=== PATIENT | male | born 1950 | race Caucasian/White ===

== ENCOUNTER 2021-12-09 07:54 | Outpatient (REF) | payer MEDICARE, SELFPAY ==
[2021-12-09 10:14] LABS: Erythrocyte Sedimentation Rate 4 MM/HR (0-15)
[2021-12-09 10:17] LABS: C Reactive Protein 0.04 mg/dL (< or = 0.50)
== END 2021-12-09 07:55 | disposition home or self-care (01) ==
LOC: HO.LAB 07:54
PROVIDERS: PCP Internal Medicine; Visit Provider Internal Medicine Rheumatology
DX: M35.3 Polymyalgia rheumatica (principal)
CPT/HCPCS: 36415; 85652; 86140; 99212

== ENCOUNTER 2022-03-07 08:18 | Outpatient (REF) | payer MEDICARE, SELFPAY ==
[2022-03-07 09:18] LABS: C Reactive Protein 0.06 mg/dL (< or = 0.50)
[2022-03-07 09:46] LABS: Erythrocyte Sedimentation Rate 4 MM/HR (0-15)
== END 2022-03-07 08:19 | disposition home or self-care (01) ==
LOC: HO.LAB 08:18
PROVIDERS: PCP Internal Medicine; Visit Provider Internal Medicine Rheumatology
DX: M35.3 Polymyalgia rheumatica (principal); M47.816 Spondylosis without myelopathy or radiculopathy, lumbar region; M19.041 Primary osteoarthritis, right hand
CPT/HCPCS: 36415; 85652; 86140; 99212

== ENCOUNTER 2022-04-07 09:36 | Outpatient (REF) | payer MEDICARE, SELFPAY ==
[2022-04-07 10:24] LABS: C Reactive Protein 0.05 mg/dL (< or = 0.50)
[2022-04-07 10:39] LABS: Erythrocyte Sedimentation Rate 4 MM/HR (0-15)
== END 2022-04-07 09:37 | disposition home or self-care (01) ==
LOC: HO.LAB 09:36
PROVIDERS: PCP Internal Medicine; Visit Provider Internal Medicine Rheumatology
DX: M35.3 Polymyalgia rheumatica (principal)
CPT/HCPCS: 36415; 85652; 86140

== ENCOUNTER → 2022-07-06 07:49 | Outpatient (BNVA) | payer MEDICARE, SELFPAY | PROVIDERS: PCP Internal Medicine; Visit Provider Internal Medicine Rheumatology | DX: M35.3 Polymyalgia rheumatica (principal) | CPT/HCPCS: 99212 ==

== ENCOUNTER 2022-11-15 10:45 | Outpatient (REF) | payer MEDICARE, SELFPAY ==
[2022-11-15 13:06] LABS: Folate 16.3 ng/mL (> or = 4.0); Vitamin B12 600 pg/mL (200-900)
== END 2022-11-15 10:46 | disposition home or self-care (01) ==
LOC: HO.LAB 10:45
PROVIDERS: PCP Internal Medicine; Visit Provider Psychiatry & Neurology Neurology
DX: G31.84 Mild cognitive impairment of uncertain or unknown etiology (principal)
CPT/HCPCS: 36415; 82607; 82746; 84436; 84443

== ENCOUNTER 2022-11-30 07:38 | Outpatient (REF) | payer MEDICARE, SELFPAY ==
--- NOTE | ~2022-11-30 | CT_ITS ---
EXAMINATION: CT head/brain wo IV con CLINICAL INFORMATION: Reason for Exam MILD COGNITIVE IMPAIRMENT COMPARISON: None. TECHNIQUE: Contiguous axial imaging was performed from the skull base to vertex without intravenous contrast. Sagittal and coronal reformatted images were obtained. This CT examination was performed using dose optimization techniques as appropriate, variously including the following: * Automated exposure control * Adjustment of mA and/or kV according to patient size (this includes techniques or standardized protocols for targeted exams where dose is matched to indication/reason for exam; i.e. extremities or head) Use of iterative reconstruction technique DLP: 784 mGy-cm FINDINGS: No acute osseous or soft tissue abnormality. The mastoid air cells and visualized portions of the paranasal sinuses are well aerated. There is no evidence of acute intracranial hemorrhage or territorial infarction. No abnormal mass effect or midline shift is seen. Park to white matter differentiation is well preserved. No extra-axial fluid collections are identified. No hydrocephalus. No significant volume loss. There is no abnormal attenuation within the brain parenchyma. CT/CT head/brain wo IV con IMPRESSION: No acute intracranial abnormality
== END 2022-11-30 07:39 | disposition home or self-care (01) ==
LOC: HO.CT 07:38
PROVIDERS: PCP Internal Medicine; Visit Provider Psychiatry & Neurology Neurology
DX: G31.84 Mild cognitive impairment of uncertain or unknown etiology (principal)
CPT/HCPCS: 70450

== ENCOUNTER 2024-01-23 09:53 | Outpatient (AMB) | payer MEDICARE, SELFPAY ==
--- NOTE | 2024-01-23 10:06 | A.OFFVIS_ITS ---
Vital Signs 01/23/24 10:15 Height 6 ft 2 in Weight 187 lb 6.287 oz BMI 24.1 BP 160/82 H Blood Pressure Location Rt brachial Position Sitting Pulse 78 Pulse Source Pulse Oximeter Pulse Oximetry (%) 97 Oxygen Delivery Method Room Air Intake Visit Reasons: PMR/CM Intake Note: Patient last seen by Dr Storey June 2022. Presents today with complaints of PMR symptoms. States he is having issues with mobility and flexibility, especially in the morning. Stiffness/achiness in back, gets worse throughout the day. Taking tylenol arthritis tid. Positive Printer Operator Required: No Accompanied by: Self / Same As Patient Allergies atorvastatin Allergy (Intermediate, Verified 01/23/24 10:18) Muscle Pain house dust Allergy (Intermediate, Verified 01/23/24 10:18) Sneezing Seasonal Allergies Allergy (Intermediate, Verified 01/23/24 10:18) Sneezing Medication List - Last Reconciled 01/23/24 by Lorraine Mei MD acetaminophen ER (Tylenol Arthritis Pain) 650 mg PO Q8H levothyroxine 75 mcg PO DAILY loratadine (Claritin) 10 mg PO DAILY rosuvastatin 10 mg PO DAILY HPI Comments Details: 73-year-old male with history of PMR returns for follow-up. Patient was last seen by Dr. Storey 06/2022 and at that time the prednisone had been tapered off as his PMR was in remission. Patient states that over the last 6 months he has been having progressive stiffness of his whole body, worse in the morning and improves after 3 hours improved with stretching. He has difficulty of getting out of his bed. He has been taking Tylenol 650 mg t.i.d.. He denies any joint swelling. Denies any headaches, blurry vision as any jaw or tongue claudication. Denies any weight loss. Believes that symptoms are similar to his symptoms when he was initially diagnosed with PMR in 2020. Most recent history by Dr. Storey 06/2022: The patient returns for evaluation of his PMR. At his last visit he was on 1 mg b.i.d. prednisone. He said he felt better and we had tried to taper before so he took it upon himself to taper further down to 1 mg prednisone daily and stopped it about a month ago. No PMR symptoms have returned. He says he has been losing weight and was worried that the prednisone could be inducing that. He notes some stiffness in his hands and intermittent low back pain. Back pain improves with stretching. He also takes some [id number] ibuprofen, 2-4 tablets spread through the day and that seems to be helpful. He has no headache, jaw claudication or visual disturbance. He had a abdominal ultrasound back in January that showed gallbladder polyps. A repeat ultrasound is planned for next month. He does have a follow-up with his PCP planned for August. [facility] TO [facility] Medical History History of colonic polyps Diverticulosis of colon (without mention of hemorrhage) Hypothyroidism Hypertension History of prostate cancer Combined hyperlipidemia Polymyalgia rheumatica syndrome Social History Household Members: Significant Other Housing: House Are you a primary acute care nurse practitioner to a significant other at home: No Do you presently have visiting nurse or other home services: No 75 years or older and lives alone: No Alcohol intake: current Patient Tobacco Use Status: Former Tobacco user Years Smoked: Quit in e-Cigarette/Vaping Use: Never Used service: No Current occupational status: retired Review of Systems [facility] [place] Reports back pain, Denies joint swelling and Reports stiffness Physical Exam Vital Signs: Last Vital Signs Pulse 78 01/23/24 10:15 BP 160/82 H 01/23/24 10:15 Pulse Ox 97 01/23/24 10:15 Oxygen Delivery Method Room Air 01/23/24 10:15 BMI result Body Mass Index 24.1 Const General: cooperative, healthy appearing and comfortable Nutritional Appearance: average body habitus Orientation/consciousness: patient oriented x3 Limitations: no limitations HEENT Other: Bilateral palpable superficial temporal artery No temporal area tenderness bilaterally Head: Yes normocephalic and Yes atraumatic Mouth: moist mucous membranes Resp Effort & Inspection: normal respiratory effort and able to speak in complete sentences Auscultation: clear to auscultation bilaterally Cardio Rate: regular rate Rhythm: regular rhythm Skin General skin exam: no rashes or lesions noted Neuro General: patient oriented x3 Extrem Other: Significant osteoarthritic changes of both hands with no active synovitis, right PIP tenderness with full flexion, inability to fully flex right index No active synovitis both wrists Normal range of motion of elbows and shoulders without pain Negative rotator cuff provocative maneuvers bilaterally Negative Speed's test bilaterally No hip pain with manipulation Assessment & Plan Assessment & Plan (1) Polymyalgia rheumatica syndrome: Comment: onset 09/2020; prednisone started 11/2020- tapered off 05/2022 Code(s): M35.3 - Polymyalgia rheumatica Category: Medical Plan: This is a 73-year-old man with history of PMR who presents for follow-up. Was last seen by Dr. Storey 06/2022 and PMR was in remission, prednisone had been tapered off. Today he presents with recurrent symptoms of generalized stiffness, worse in the morning, improved after 3 hours. Symptoms ongoing for the last 6 months. I do not see any active peripheral synovitis today. Clinical picture suspicious for recurrent PMR. Will order comprehensive serology to re-evaluate his condition. If inflammatory markers are elevated, will restart prednisone Follow-up in 6 weeks Plan I spent 30 minutes reviewing patient's chart, evaluating patient, ordering diagnostic workup, counseling patient and documenting in the chart Orders: Orders T Spot TB Today M06.9 - Rheumatoid arthritis, unspecified Rheumatoid Factor Today M06.9 - Rheumatoid arthritis, unspecified Complete Blood Count Auto Diff Today M06.9 - Rheumatoid arthritis, unspecified Comprehensive Met. Panel Today M06.9 - Rheumatoid arthritis, unspecified C Reactive Protein Today M06.9 - Rheumatoid arthritis, unspecified Erythrocyte Sedimentation Rate Today M06.9 - Rheumatoid arthritis, unspecified Immunofixation Pnl, Serum Today M06.9 - Rheumatoid arthritis, unspecified Hepatitis A,B,C Profile Today Z11.59 - Encounter for screening for other viral diseases Cyclic Citrullinated Peptide Today M06.9 - Rheumatoid arthritis, unspecified YARA Reflex Titer and Pattern Today M35.3 - Polymyalgia rheumatica Coding Level of Care Code Est Pt Level 4 (20228) Diagnoses Polymyalgia rheumatica syndrome M35.3
[2024-01-23 10:15] VITALS: BP 160/82; PULSE 78; O2SAT 97; BMI 24.1
== END 2024-01-23 10:44 | disposition home or self-care (01) ==
LOC: HO.RHE 09:53
PROVIDERS: PCP Internal Medicine; Visit Provider Student in an Organized Health Care Education/Training Program
DX: M35.3 Polymyalgia rheumatica (principal)
CPT/HCPCS: 99214

== ENCOUNTER 2024-01-23 09:53 | Outpatient (REF) | payer MEDICARE, SELFPAY ==
[2024-01-23 11:19] LABS: MANUAL DIFF FLAG NO
[2024-01-23 12:09] LABS: Basophils Absolute Auto 0.1 X10*3/uL (0.0-0.2); Basophils Percent Auto 0.9 % (0-2); Eosinophils Absolute Auto 0.2 X10*3/uL (0.0-0.4); Hematocrit 42.7 % (42.0-52.0); Hemoglobin 15.5 g/dl (14.0-18.0); Imm Gran Abs Auto 0.02 X10*3/uL (0.00-0.03); Imm Gran Pct Auto 0.4 % (0.0-0.4); Lymphocytes Absolute Auto 2.1 X10*3/uL (1.2-4.9); Lymphocytes Percent Auto 36.1 % (20-40); Mean Corpuscular HGB Conc 36.3 g/dl (31.0-36.0); Mean Corpuscular Hemoglobin 32.8 pg (27.0-33.0); Mean Corpuscular Volume 90.5 fL (80.0-98.0); Mean Platelet Volume 9.4 fL (9.4-12.4); Monocytes Absolute Auto 0.6 X10*3/uL (0.1-1.2); Monocytes Percent Auto 10.4 % (2-11); Neutrophils Absolute Auto 2.8 x10*3/uL (2.0-8.3); Neutrophils Percent Auto 49.2 % (45-73); Platelet Count 159 X10*3/uL (160-400); Red Blood Count 4.72 X10*6/uL (4.60-5.80); White Blood Count 5.7 X10*3/uL (4.8-10.8)
[2024-01-23 12:45] LABS: Alanine Aminotransferase 35 U/L (0-40); Albumin Level 4.1 g/dL (3.5-5.0); Alkaline Phosphatase 74 U/L (39-117); Anion Gap 11 (12-20); Aspartate Amino Transferase 26 U/L (5-37); Bilirubin Total 0.7 mg/dL (0.0-1.0); Blood Urea Nitrogen 12 mg/dL (9-16); C Reactive Protein < 0.10 mg/dL (< or = 0.50); Calcium 9.3 mg/dL (8.4-10.2); Carbon Dioxide 27 mmol/L (22-29); Chloride 106 mmol/L (96-108); Estimated Glomerular Filt Rate > 60; Glucose Random 104 mg/dL (60-115); Potassium 3.9 mmol/L (3.3-5.1); Rheumatoid Factor < 13.0 IU/mL (<15.0); Sodium 140 mmol/L (135-145); Total Protein 6.6 g/dL (6.5-8.0)
[2024-01-23 12:53] LABS: Erythrocyte Sedimentation Rate 3 MM/HR (0-15)
[2024-01-24 08:17] LABS: HBS Num1 0.67 mIU/mL (0-7.99); HBc Num1 0.06 S/CO (0.00-0.79); HBsAGNum1 0.34 S/CO (0.00-0.99); Hepatitis A Antibody IgM 0.11 Index (0-0.79); Hepatitis B Core Antibody Nonreactive (Nonreactive); Hepatitis B Surface Antigen Negative (Negative); ~HepC Num1 0.07 S/CO (0.00-0.79); ~Hepatitis A Antibody IgM Nonreactive (Nonreactive); ~Hepatitis B Surface Antibody NONREACTIVE (Nonreactive); ~Hepatitis C Antibody Nonreactive (Nonreactive)
[2024-01-24 15:48] LABS: Cyclic Citrullinated Peptide <16 UNITS
[2024-01-25 14:53] LABS: IgA 150 mg/dL (70-320); IgG 811 mg/dL (600-1540); IgM 52 mg/dL (50-300)
[2024-01-26 07:43] LABS: TS Negative Control Passed; TS Panel A 0; TS Panel B 0; TS Positive Control Passed; TSpotTB Negative (Negative)
[2024-01-26 20:39] LABS: Anti Nuclear Antibody Screen NEGATIVE (NEGATIVE)
== END 2024-01-23 09:54 | disposition home or self-care (01) ==
LOC: HO.LAB 09:53
PROVIDERS: PCP Internal Medicine; Visit Provider Student in an Organized Health Care Education/Training Program
DX: M35.3 Polymyalgia rheumatica (principal); M06.9 Rheumatoid arthritis, unspecified; Z11.59 Encounter for screening for other viral diseases
CPT/HCPCS: 36415; 80053; 82784; 85025; 85652; 86038; 86140; 86200; 86334; 86431; 86481; 86704; 86706; 86709; 86803; 87340; 99212

== ENCOUNTER 2024-03-28 07:53 | Outpatient (AMB) | payer MEDICARE, SELFPAY ==
--- NOTE | 2024-03-28 07:58 | MHC.OFFVIS ---
Vital Signs 03/28/24 08:02 Height 6 ft 2 in Weight 189 lb 6.033 oz BMI 24.3 BP 152/84 H Blood Pressure Location Lt brachial Position Sitting Pulse 60 Pulse Source Pulse Oximeter Pulse Oximetry (%) 99 Oxygen Delivery Method Room Air Intake Visit Reasons: PMR/LM Intake Note: Patient presents for PMR. Should we continue with Prednisone prescription? Allergies atorvastatin Allergy (Intermediate, Verified 03/28/24 08:01) Muscle Pain house dust Allergy (Intermediate, Verified 03/28/24 08:01) Sneezing Seasonal Allergies Allergy (Intermediate, Verified 03/28/24 08:01) Sneezing Medication List - Last Reconciled 03/28/24 by Lorraine Mei MD acetaminophen ER (Tylenol Arthritis Pain) 650 mg PO Q8H levothyroxine 75 mcg PO DAILY loratadine (Claritin) 10 mg PO DAILY prednisone Take 1 tab daily for 1 month then 1 tab every other day for 1 month then stop rosuvastatin 10 mg PO DAILY HPI Comments Details: 73-year-old male with history of PMR returns for follow-up. Patient took prednisone 5 mg daily regularly for the last month until he ran out 3 days ago. He stated that prednisone provided about 50% improvement in his overall stiffness. Most recent history by Dr. Storey 06/2022: The patient returns for evaluation of his PMR. At his last visit he was on 1 mg b.i.d. prednisone. He said he felt better and we had tried to taper before so he took it upon himself to taper further down to 1 mg prednisone daily and stopped it about a month ago. No PMR symptoms have returned. He says he has been losing weight and was worried that the prednisone could be inducing that. He notes some stiffness in his hands and intermittent low back pain. Back pain improves with stretching. He also takes some xbrq-tmw-usbsikt ibuprofen, 2-4 tablets spread through the day and that seems to be helpful. He has no headache, jaw claudication or visual disturbance. He had a abdominal ultrasound back in January that showed gallbladder polyps. A repeat ultrasound is planned for next month. He does have a follow-up with his PCP planned for August. [facility] Medical History History of colonic polyps Diverticulosis of colon (without mention of hemorrhage) Hypothyroidism Hypertension History of prostate cancer Combined hyperlipidemia Polymyalgia rheumatica syndrome Social History Household Members: Significant Other Housing: House Are you a primary progressive care manager to a significant other at home: No Do you presently have visiting nurse or other home services: No 75 years or older and lives alone: No Alcohol intake: current Patient Tobacco Use Status: Former Tobacco user Years Smoked: Quit in e-Cigarette/Vaping Use: Never Used service: No Current occupational status: retired [employer] of [employer] Reports stiffness Physical Exam Vital Signs: Last Vital Signs Pulse 60 03/28/24 08:02 BP 152/84 H 03/28/24 08:02 Pulse Ox 99 03/28/24 08:02 Oxygen Delivery Method Room Air 03/28/24 08:02 BMI result Body Mass Index 24.3 Const General: cooperative, healthy appearing and comfortable Nutritional Appearance: average body habitus Orientation/consciousness: patient oriented x3 Limitations: no limitations HEENT Other: Bilateral palpable superficial temporal artery No temporal area tenderness bilaterally Head: Yes normocephalic and Yes atraumatic Mouth: moist mucous membranes Resp Effort & Inspection: normal respiratory effort and able to speak in complete sentences Auscultation: clear to auscultation bilaterally Cardio Rate: regular rate Rhythm: regular rhythm Skin General skin exam: no rashes or lesions noted Neuro General: patient oriented x3 Extrem Other: Significant osteoarthritic changes of both hands with no active synovitis, right PIP tenderness with full flexion, inability to fully flex right index No active synovitis both wrists Normal range of motion of elbows and shoulders without pain Negative rotator cuff provocative maneuvers bilaterally Negative Speed's test bilaterally No hip pain with manipulation Unable to fully flex both knees No knee pain with full flexion-extension Results Reviewed Results Reviewed: Laboratory Tests 04/07/22 04/07/22 09:51 09:51 teodora: Z : 1950 ? ? ? Final ? \ Assessment & Plan Assessment & Plan (1) Polymyalgia rheumatica syndrome: Comment: onset 09/2020; prednisone started 11/2020- tapered off 05/2022 5mg restarted 01/2024 Code(s): M35.3 - Polymyalgia rheumatica Category: Medical Plan: This is a 73-year-old man with history of PMR returns for follow-up. He has been taking prednisone 5 mg regularly for the last 2 months with about 50% improvement in his overall stiffness. Likely the majority of his symptoms are related to degenerative arthritis Reduce prednisone to 2.5 mg daily for 1 month, 2.5 mg every other day for 1 month then stop follow-up in 3 months, no need for blood work before the visit Plan I spent 22minutes reviewing patient's chart, evaluating patient, counseling patient and documenting in the chart Medications: New prednisone Take 1 tab daily for 1 month then 1 tab every other day for 1 month then stop 45 tabs 0RF Discontinued prednisone Discontinued Reason: Patient Completed Course 5 mg PO DAILY 30 tabs 0RF Coding Level of Care Code Est Pt Level 3 (15770) Diagnoses Polymyalgia rheumatica syndrome M35.3
[2024-03-28 08:02] VITALS: BP 152/84; PULSE 60; O2SAT 99; BMI 24.3
== END 2024-03-28 08:32 | disposition home or self-care (01) ==
PROVIDERS: PCP Internal Medicine; Visit Provider Student in an Organized Health Care Education/Training Program
DX: M35.3 Polymyalgia rheumatica (principal)
CPT/HCPCS: 99213

== ENCOUNTER → 2024-03-28 07:53 | Outpatient (BNVA) | payer MEDICARE, SELFPAY | PROVIDERS: PCP Internal Medicine; Visit Provider Student in an Organized Health Care Education/Training Program | DX: M35.3 Polymyalgia rheumatica (principal) | CPT/HCPCS: 99212 ==

== ENCOUNTER 2024-07-08 07:38 | Outpatient (AMB) | payer MEDICARE, SELFPAY ==
--- NOTE | 2024-07-08 07:39 | MHC.OFFVIS ---
Vital Signs 07/08/24 07:42 Height 6 ft 2 in Weight 188 lb 0.869 oz BMI 24.1 BP 112/64 Blood Pressure Location Rt brachial Pulse 61 Pulse Source Pulse Oximeter Pulse Oximetry (%) 97 Oxygen Delivery Method Room Air Intake Visit Reasons: PMR/LM Intake Note: Patient presents for PMR. Allergies atorvastatin Allergy (Intermediate, Verified 07/08/24 07:42) Muscle Pain house dust Allergy (Intermediate, Verified 07/08/24 07:42) Sneezing Seasonal Allergies Allergy (Intermediate, Verified 07/08/24 07:42) Sneezing Medication List - Last Reconciled 07/08/24 by Lorraine Mei MD acetaminophen ER (Tylenol Arthritis Pain) 650 mg PO Q8H levothyroxine 75 mcg PO DAILY loratadine (Claritin) 10 mg PO DAILY prednisone Take 1 tab daily for 1 month then 1 tab every other day for 1 month then stop rosuvastatin 10 mg PO DAILY HPI Comments Details: 73-year-old male with history of PMR returns for follow-up. He has been off the prednisone for about a month now. States that he is feeling reasonably well. He states that he has stiffness when he wakes up. He does some exercises at home such as sit-ups, leg stretches, quadriceps flexions as well as arms stretches with improvement. States that he gets some intermittent lower back pain. Denies any joint swelling. [facility] Medical History History of colonic polyps Diverticulosis of colon (without mention of hemorrhage) Hypothyroidism Hypertension History of prostate cancer Combined hyperlipidemia Polymyalgia rheumatica syndrome Social History Household Members: Significant Other Housing: House Are you a primary day care home provider to a significant other at home: No Do you presently have visiting nurse or other home services: No 75 years or older and lives alone: No Alcohol intake: current Patient Tobacco Use Status: Former Tobacco user Years Smoked: Quit in e-Cigarette/Vaping Use: Never Used service: No Current occupational status: retired Review of Systems [facility] [place] Reports back pain and Reports stiffness Physical Exam Vital Signs: Last Vital Signs Pulse 61 07/08/24 07:42 BP 112/64 07/08/24 07:42 Pulse Ox 97 07/08/24 07:42 Oxygen Delivery Method Room Air 07/08/24 07:42 BMI result Body Mass Index 24.1 Const General: cooperative, healthy appearing and comfortable Nutritional Appearance: average body habitus Orientation/consciousness: patient oriented x3 Limitations: no limitations HEENT Other: Bilateral palpable superficial temporal artery No temporal area tenderness bilaterally Head: Yes normocephalic and Yes atraumatic Mouth: moist mucous membranes Resp Effort & Inspection: normal respiratory effort and able to speak in complete sentences Auscultation: clear to auscultation bilaterally Cardio Rate: regular rate Rhythm: regular rhythm Skin General skin exam: no rashes or lesions noted Neuro General: patient oriented x3 Extrem Other: Significant osteoarthritic changes of both hands with no active synovitis, right PIP tenderness with full flexion, inability to fully flex right index No active synovitis both wrists Normal range of motion of elbows and shoulders without pain Negative rotator cuff provocative maneuvers bilaterally Negative Speed's test bilaterally No hip pain with manipulation Unable to fully flex both knees No knee pain with full flexion-extension Assessment & Plan Assessment & Plan (1) Polymyalgia rheumatica syndrome: Comment: onset 09/2020; prednisone started 11/2020- tapered off 05/2022 5mg restarted 01/2024 tapered off 05/2024 Code(s): M35.3 - Polymyalgia rheumatica Category: Medical Plan: This is a 73-year-old man with history of PMR returns for follow-up. He is off the prednisone for over one-month now. Doing well overall. No inflammatory symptoms. Symptoms more consistent with degenerative arthritis Continue to monitor patient off prednisone Follow-up in 1 year. Sooner if needed Plan I spent 15 minutes reviewing patient's chart, evaluating patient, counseling patient and documenting in the chart Coding Level of Care Code Est Pt Level 3 (30095) Diagnoses Polymyalgia rheumatica syndrome M35.3
[2024-07-08 07:42] VITALS: BP 112/64; PULSE 61; O2SAT 97; BMI 24.1
== END 2024-07-08 07:59 | disposition home or self-care (01) ==
PROVIDERS: PCP Internal Medicine; Visit Provider Student in an Organized Health Care Education/Training Program
DX: M35.3 Polymyalgia rheumatica (principal)
CPT/HCPCS: 99213

== ENCOUNTER → 2024-07-08 07:38 | Outpatient (BNVA) | payer MEDICARE, SELFPAY | PROVIDERS: PCP Internal Medicine; Visit Provider Student in an Organized Health Care Education/Training Program | DX: M35.3 Polymyalgia rheumatica (principal) | CPT/HCPCS: 99212 ==

== ENCOUNTER 2025-07-25 08:16 | Outpatient (REF) | payer MEDICARE, SELFPAY ==
[2025-07-25 11:43] LABS: Folate 12.7 ng/mL (> or = 4.0); Vitamin B12 712 pg/mL (200-900)
[2025-07-30 06:04] LABS: ABETA 42/40 Ratio 0.160 (> OR = 0.170); Alzeheimer's Interpretation Indeterminant; Alzeimer's Disease Score 0.5291; Tau protein phosphorylated 217 0.39 pg/mL (< OR = 0.15)
== END 2025-07-25 08:17 | disposition home or self-care (01) ==
LOC: HO.LAB 08:16
PROVIDERS: PCP Internal Medicine; Visit Provider Registered Nurse
DX: G31.84 Mild cognitive impairment of uncertain or unknown etiology (principal); G25.0 Essential tremor; G24.3 Spasmodic torticollis; H93.19 Tinnitus, unspecified ear
CPT/HCPCS: 36415; 82233; 82234; 82607; 82746; 84393; 84443; 99212

== ENCOUNTER 2025-07-25 08:16 | Outpatient (AMB) | payer MEDICARE, SELFPAY ==
--- OUTSIDE RECORDS SUMMARY | 2025-07-25 08:24 | XMS_ITS | Encounter Summary ---
Author Organization [facility] Address [address] [place] [address] Care Team Providers Care Tax Processor Name Role Phone Stanislaw Negron MD Primary Care Provider [phone] Encounter Details Date Type Department Care Team (Late Contact Info) Description 07/08/2025 Results Follow-Up Adult Medicine [address] [phone] Stanislaw Negron MD [address] [place] [address] Social History Tobacco Use Types Packs/Day Years Used Date Smoking Tobacco: Former Cigarettes 0 Q uit: 09/11/1967 Smokeless Tobacco: Never Alcohol Use Standard Drinks/Week Comments Yes 0 (1 standard drink = 0.6 oz pur e alcohol) Sex and Gender Information Value Date Recorded Sex Assigned at Not on file Legal Sex Male 2:53 PM EST Gender Identity Not on file Sexual Orientation Not on file documented as of this encounter Plan of Treatment Upcoming Encounters Date Type Department Care Team (Late Contact Info) Description 09/22/2025 8:30 AM EST Office Visit Adult Medicine [address] [phone] Stanislaw Negron MD [address] [place] [address] documented as of this encounter Visit Diagnoses Not on filedocumented in this encounter Additional Health Concerns Assessment Noted Time A fall risk assessment has been complete d for the patient 07/07/2025 11:50 AM EDT documented as of this encounter Care Teams Tax Processor Relationship Specialty Start Date End Date Stanislaw Negron MD [address] [place] [address] PCP - General 12/12/07 documented as of this encounter
--- OUTSIDE RECORDS SUMMARY | 2025-07-25 08:24 | XMS_ITS | Clinical Summary ---
Author Organization [facility] [address] [place] [address] [place] [phone] Phone Care Team Providers Care Hematology Supervisor Name Role Phone Stanislaw Negron MD Primary Care Provider [phone] Allergies Active Allergy Reactions Criticality Noted Date Comments Atorvastatin Pain 07/16/2018 Reaction Type: Side Effect House Dust 11/08/2017 Other 11/08/2017 Medications acetaminophen (TYLENOL 8 HOUR) 650 mg 8 hr tablet Take 1 Tablet by mouth 3 times daily. OTC Active loratadine (CLARITIN) 10 mg tablet Take 1 Tab by mouth daily. Active DAILY MULTI-VITAMIN ORAL Take by mouth. Activ e predniSONE (DELTASONE) 5 mg tablet Take 1 Tablet by mouth daily. 4 Active DIETARY SUPPLEMENT ORAL Apoaequorin 10 MG Cap Route: Take 1 Tablet by mouth daily. - Oral Active levothyroxine (SYNTHROID, LEVOTHROID) 75 mcg tablet TAKE 1 TABLET DAILY 90 tablet 1 5 Active rosuvastatin (CRESTOR) 10 mg tablet Take 1 tablet (10 mg total) by mouth 1 (one) time each day. 90 tablet 1 5 Active rosuvastatin (CRESTOR) 10 mg tablet TAKE 1 TABLET DAILY 90 tablet 1 5 07/07/20 25 Discontin ued(Reord er) Active Problems Problem Noted Date Diagnosed Date Patient has healthcare proxy 07/07/2025 Overview (07/07/2025): Son, Jason, lives in [place] area Partner, Melissa Assessment & Plan (07/07/2025 12:56 PM EDT): Memory deficit 03/07/2024 Assessment & Plan (07/07/2025 12:56 PM EDT): Gall bladder polyp 04/19/2023 Abnormal ultrasound 01/28/2022 Overview (06/06/2024): On ultrasound for evaluation of mild abnormal liver function test, less than 0.3 cm Hypertension 07/12/2021 Overview (06/06/2024): Last Assessment & Plan: The patient's blood pressure is somewhat elevated in the office today. I rechecked and confirmed this reading. He complained of the last time he checked his blood pressure was a couple of months ago at home. Prior to that, his blood pressure was consistently in the 120-130 range systolically. This certainly is the goal for this patient. He has never been on an antihypertensive. For now, we recommend ongoing physical activity. We discussed focused movement such as walking for at least 20 to 30 minutes every day as a means of maintaining general health as well as working to increase vasodilatation and control his blood pressure. The patient understands this and agrees. I also recommended that he does not check his blood pressure periodically at home and notify Dr. Negron if his blood pressure starts trending up to the 140 and 150 range. This likely would indicate the need for initiating an antihypertensive. Would recommend ARB as first-line. Assessment & Plan (07/07/2025 12:56 PM EDT): Orders: Comprehensive metabolic panel; Future Hyperlipidemia 07/12/2021 Overview (06/06/2024): Last Assessment & Plan: Patient does have a history of hyperlipidemia. He is last lipid profile in March demonstrated that the total cholesterol was Hello Mr. 990 mg he asked me to see you 258, triglycerides 136, HDL 56 the LDL is 175. This LDL is too high. Tell him I want to try to get the LDL below 100. Currently in the past he cannot tolerate atorvastatin. He was able to tolerate rosuvastatin but the co-pay was too high. He has been on this dose of pravastatin for some time. Repeat his lipids not reviewed; increase his pravastatin to 20 mg a day. Come back to titrate this is high as we possibly could. Again with a goal of trying to the LDL below 100. I did calculate his 10-year risk of developing atherosclerosis and was 18.7%. I did tell patient if he started having exertional symptoms, I described to him to call. I did tell him if any discomforts in his chest that lasted over 15-20 minutes to call 911. Polymyalgia rheumatica syndrome ([facility] V24) Overview (06/06/2024): Onset 09/2020 Prednisone started 11/2020 Assessment & Plan (07/07/2025 12:56 PM EDT): Hypothyroidism 05/09/2017 Ventral hernia 12/17/2014 Diverticulitis of colon without hemorrhage 05/14 Overview (06/06/2024): Incidental finding at colonoscopy 05/14/2010. Mixed hyperlipidemia 12/09/2009 Overview (06/06/2024): Last Assessment & Plan: The patient's LDL is well-controlled on his current low-dose statin. Increasing his formal exercise in the form of walking will also help his lipid profile. He does not have any symptoms or complaints related to his statin therapy Crestor. Assessment & Plan (07/07/2025 12:56 PM EDT): Orders: Lipid panel with reflex to direct LDL; Future Comprehensive metabolic panel; Future Prostate cancer ([facility] V24, [facility] V28) 09/12 Overview (06/06/2024): 2008 S/p prostaectomy in [place] Assessment & Plan (07/07/2025 12:56 PM EDT): Encounters Date Type Department Care Team Description 07/08/2025 Results Follow-Up Adult Medicine [address] [phone] Stanislaw Negron MD 07/07/2025 12:42 PM EDT - 07/07/2025 11:59 PM EDT Hospital Encounter [address] [phone] Right shoulder pain, unspecified chronicity Discharge Disposition: Home or Self Care 07/07/2025 11:15 AM EDT Office Visit [address] [phone] Stanislaw Negron MD Need for prophylactic vaccination and inoculation against influenza (Primary Dx); Primary hypertension; Mixed hyperlipidemia; Polymyalgia rheumatica syndrome (CMS/HCC V24); Prostate cancer (CMS/HCC V24, CMS/HCC V28); Memory deficit; Right shoulder pain, unspecified chronicity; Patient has healthcare proxy from Last 3 Months Immunizations Immunization Administration Dates Next Due H1N1 Inj Preservative Free 07/13/2022 Influenza Quadravalent, MDCK , 0.5ml, preservative free (Flucelvax) 6mo and older 07/25/2018 Influenza trivalent, 0.5mL ( Fluad) 65yo and older 07/07/2025 Influenza trivalent, 0.5mL ( Fluzone High-dose) 65yo and older 07/20/2020 Influenza trivalent, with preservative (Fluzone; Afluria) 6mo and older 07/20/2016,08/25/2015,07/15/2014,2010,07/20/2010 Pfizer (ages 12 & older) Biv alent, COVID-19 08/08/2023,07/13/2022 Pfizer SARS-CoV-2 COVID-19, mRNA, LNP-S, preservative free 12/22/2020,12/01/2020 Pneumococcal conjugate 13 va lent (Prevnar 13, PCV13) 2mo and older 07/25/2018 Tdap Tetanus diptheria acell ular pertussis (Boostrix; Adacel) 7yo and older 12/12/2007 Zoster Live 03/23/2012 Surgical History Surgery Date Site/Laterality Comments COLONOSCOPY 1999 PROCEDURE: HISTORICAL COLONOSCOPY; COMMENT: negative COLONOSCOPY 2004 PROCEDURE: HISTORICAL COLONOSCOPY; COMMENT: 3 polyps, done in [place] COLONOSCOPY 05/14/2010 PROCEDURE: HISTORICAL COLONOSCOPY; COMMENT: diverticulosis, no polyps COLONOSCOPY 2014 PROCEDURE: HISTORICAL COLONOSCOPY; COMMENT: no polyps COLONOSCOPY 03/23/2020 PROCEDURE: HISTORICAL COLONOSCOPY; COMMENT: No polyps. Consider colonoscopy again in 5 to 10 years. Medical History Medical History Date Comments Prostate cancer ([facility] V24 , CMS/HCC V28) 09/12/2008 DX:Prostate cancer (HCC) Mixed hyperlipidemia 12/09/2009 DX:Mixed hy perlipidemia Thyroid function test abnormal 03/08/2010 D X:Thyroid function test abnormal Diverticulosis of colon (wit hout mention of hemorrhage) 05/14/2010 DX:Diverticulosis of colon ( without mention of hemorrhage) Ventral hernia 12/17/2014 DX:Ventral herni a Personal history of colonic polyps 12/12/2007 DX:Personal history of colonic polyps Gallstones DX:Gallstones Gallbladder polyp DX:Gallbladder polyp Family History Medical History Relation Name Comments Colon polyps Father Hypertension Father Prostate cancer Father Hyperlipidemia Mother Other: MS Mother Heart attack Paternal Grandfather at age 60' Relation Name Status Comments Father Mother Paternal Grandfather Social History Tobacco Use Types Packs/Day Years Used Date Smoking Tobacco: Former Cigarettes 0 Q uit: 09/11/1967 Smokeless Tobacco: Never Tobacco Cessation:Counseling Given: Not Answered Alcohol Use Standard Drinks/Week Comments Yes 0 (1 standard drink = 0.6 oz pur e alcohol) Sex and Gender Information Value Date Recorded Sex Assigned at Not on file Legal Sex Male 2:53 PM EST Gender Identity Not on file Sexual Orientation Not on file Obstetrics History Last Filed Vital Signs Vital Sign Reading Time Taken Comments Blood Pressure 136/78 07/07/2025 11:43 AM EDT Pulse 67 07/07/2025 11:43 AM EDT Temperature 36.2 C (97.2 F) 07/07/2025 11:43 AM EDT Respiratory Rate 12 07/07/2025 11:43 AM EDT Oxygen Saturation 98% 07/07/2025 11:43 AM EDT Inhaled Oxygen Concentration - - Weight 85.7 kg (189 lb) 07/07/2025 11:43 AM EDT Height 188 cm (6' 2 ) 07/07/2025 11:43 AM EDT Body Mass Index 24.27 07/07/2025 11:43 AM EDT Plan of Treatment Upcoming Encounters Date Type Department Care Team (Late st Contact Info) Description 09/22/2025 8:30 AM EST Office Visit [place] Medicine [facility] [place] [address] [place] [phone] Stanislaw Negron MD [address] [place] [address] Health Maintenance Due Date Last Done Comments Zoster Vaccines (1 of 2) 05/18/2012 03/23/2012 DTaP,Tdap,and Td Vaccines (2 - Td or Tdap) 12/11/2017 12/12/2007 Pneumococcal Vaccine: 50+ Years (2 of 2 - PCV20 or PCV21) 07/25/2019 07/25/2018 Social Influencers of Health Screening 08/20/2022 RSV Immunization Adult Patients (1 - 1-dose 75+ series) 2024 Depression Screening 09/11/2024 03/07/2024 Hypertension/CHF/CAD Annual BMP Blood Test 12/26/2024 12/27/2023 Colorectal Cancer Screening: Colonoscopy 03/23/2025 03/23/2020 COVID-19 Vaccine ( season) 2025 08/08/2023, 07/13/2022, 12/22/2020, Additional history exists Falls Risk Assessment 07/07/2026 07/07/2025, 024 Medicare Annual Wellness Visit 07/07/2026 07/07/2025 Cholesterol Screening (Lipid Panel) 12/06/2027 12/05/2022 Abdominal Aortic Aneurysm (AAA) Screen Completed 02/28/2023 Hepatitis C Screening Completed 03/07/2024 Influenza Vaccine Completed 07/07/2025, , 07/13/2022, Additional history exists HIB Vaccines Aged Out No longer eligi ble based on patient's age to complete this topic HPV Vaccines Aged Out No longer eligi ble based on patient's age to complete this topic Hepatitis A Vaccines Aged Out No long er eligible based on patient's age to complete this topic Hepatitis B Vaccines Aged Out No long er eligible based on patient's age to complete this topic IPV Vaccines Aged Out No longer eligi ble based on patient's age to complete this topic MMR Vaccines Aged Out No longer eligi ble based on patient's age to complete this topic Meningococcal ACWY Vaccine Aged Out N o longer eligible based on patient's age to complete this topic Meningococcal B Vaccine Aged Out No l onger eligible based on patient's age to complete this topic RSV Immunization Patients Under 20 months Aged Out No longer eligible based on patient's age to complete this topic Varicella Vaccines Aged Out No longer eligible based on patient's age to complete this topic Procedures Procedure Name Priority Date/Time Associated Diagnosis Comments XR SHOULDER 2+ VIEWS BILAT Routine 07/07/2025 12:56 PM EDT Right shoulder pain, unspecified chronicity DEPRESSION SCREENING Routine 03/07/2024 HEPATITIS C SCREENING Routine 03/07/2024 ANNUAL BMP BLOOD TEST Routine 12/27/2023 FALLS RISK ASSESSMENT Routine 09/27/2023 ABDOMINAL AORTIC ANEURYSM SCRREN Routine 02/28/2023 LIPID PANEL Routine 12/05/2022 COLONOSCOPY Routine 03/23/2020 from Last 3 Months or Most Recently Relevant to Health Maintenance Results * XR Shoulder 2+ Views bilat (07/07/2025 12:56 PM EDT) Anatomical Region Laterality Modality Upper Extremities, Shoulder Bilateral Radi ographic Imaging 07/07/2025 11:0 5 PM EDT Narrative 07/07/2025 11:07 PM EDT Bilateral shoulders, 2 views. History pain. There are osteophytes arising from the undersurface of the right acromion process. There is no fractures, dislocations or destructive lesions. There is downsloping of the acromion process is more prominent on the right. There are mild degenerative changes in the glenohumeral joints bilaterally. There is no abnormal soft tissue calcifications. CONCLUSIONS: No evidence of fractures or dislocations. Degenerative changes. Downsloping of the acromion process more prominent on the right. -------- FINAL REPORT -------- Dictated By: Catalina Blunt Dictated Date: 07/07/2025 23:05 ET Assigned Physician: Catalina Blnut Reviewed and Electronically Signed By: Catalina Blunt Signed Date: 07/07/2025 23:07 ET Workstation ID: [id number] Transcribed By: Self Edit Transcribed Date: 07/07/2025 23:05 ET Procedure Note Catalina Blunt MD - 07/07/2025 Bilateral shoulders, 2 views. History pain. There are osteophytes arising from the undersurface of the right acromionprocess. There is no fractures, dislocations or destructive lesions. Thereis downsloping of the acromion process is more prominent on the right.There are mild degenerative changes in the glenohumeral jointsbilaterally. There is no abnormal soft tissue calcifications. CONCLUSIONS: No evidence of fractures or dislocations. Degenerativechanges. Downsloping of the acromion process more prominent on theright. -------- FINAL REPORT -------- Dictated By: Catalina Blunt Dictated Date: 07/07/2025 23:05 ET Assigned Physician: Catalina Blunt Reviewed and Electronically Signed By: Catalina Blunt Signed Date: 07/07/2025 23:07 ET Workstation ID: [id number] Transcribed By: Self Edit Transcribed Date: 07/07/2025 23:05 ET Stanislaw Negron MD IMG XR PROCEDURES Final Result * Depression Screening (03/07/2024) [facility] Depression Screening Abstracted Historical Provider HEALTH MAINTENANCE Final Result * Hepatitis C Screening (03/07/2024) [facility] Hepatitis C Screening No interpretation , Abstracted Historical Provider HEALTH MAINTENANCE Final Result * Annual BMP Blood Test (12/27/2023) [facility] Annual BMP Blood Test Abstracted Historical Provider HEALTH MAINTENANCE Final Result * Falls Risk Assessment (09/27/2023) Pathologist [facility] Falls Risk Assessment Abstracted [facility] Provider HEALTH MAINTENANCE Final Result * Abdominal Aortic Aneurysm Screen (02/28/2023) [facility] Abdominal Aortic Aneurysm (AAA) Screening Abstracted Anatomical Region Laterality Modality Other [facility] Provider HEALTH MAINTENANCE Final Result * Lipid panel (12/05/2022) [facility] LDL/HDL Ratio 4 0 - 4 Triglycerides 117 0 - 150 mg/dL Cholesterol 166 0 - 200 mg/dL HDL 46 >=40 mg/dL LDL Cholesterol 97 0 - 100 mg/dL Blood Venous blood specimen / Unknown Result [facility] Provider LAB BLOOD ORDERABLES Phyllis l Result * Colonoscopy (03/23/2020) [facility]ologist [facility] Colonoscopy No interpretation , Abstracted Anatomical Region Laterality Modality Other [facility] Provider HEALTH MAINTENANCE Final Result from Last 3 Months or Most Recently Relevant to Health Maintenance Insurance [facility] MEDICARE [facility] Care Teams Hematology Supervisor Relationship Specialty Start Date End Date Stanislaw Negron MD [address] [place] [address] PCP - General 12/12/07
--- NOTE | 2025-07-25 08:33 | MHC.OFFVIS ---
Intake Visit Reasons: 6m Allergies atorvastatin Allergy (Intermediate, Verified 07/25/25 08:38) Muscle Pain house dust Allergy (Intermediate, Verified 07/25/25 08:38) Sneezing Seasonal Allergies Allergy (Intermediate, Verified 07/25/25 08:38) Sneezing Medication List - Last Reconciled 07/25/25 by Mel Ignacio CNP acetaminophen ER (Tylenol Arthritis Pain) 650 mg PO Q8H levothyroxine 75 mcg PO DAILY loratadine (Claritin) 10 mg PO DAILY prednisone Take 1 tab daily for 1 month then 1 tab every other day for 1 month then stop rosuvastatin 10 mg PO DAILY HPI Comments Details: Memory may be declining some, more forgetful and feels he may be more distracted. He was concerned about memory given family history. Staying active with indoor or outdoor work depending on weather. He makes a shopping list of what he needs. Sometimes he will go somewhere and it may take him some time to remember why he went there. Reading about 1 book/week, no difficulty following plot. Tremor was okay, says Melissa (woman who he has lived with for many years) may notice his head shaking side to side, but he does not notice it and it does not bother him. He does not notice any tremors in his hands. No functional impairment. No difficulty eating, drinking, or swallowing. He was dealing with some arthritis pains in hands and shoulders, and was seeing ceramic tiler. Having some short term memory problems since 2022 with negative workup and was taking Prevagen. Math skills have regressed and at times forgets. Mother and maternal uncle had AD in 70s. Family has noted slight intermittent [id number] head tremor starting in 2014. No tremor in the hands. No family history of tremor. No functional limitations. He was not aware of any head turning to one side or the other. Tinnitus is both ears, hearing loss. [facility] Medical History (Updated 07/25/25 @ 08:51 by Mel Ignacio CNP) MCI (mild cognitive impairment) History of colonic polyps Diverticulosis of colon (without mention of hemorrhage) Hypothyroidism Hypertension History of prostate cancer Combined hyperlipidemia Polymyalgia rheumatica syndrome Family History (Updated 07/25/25 @ 09:08 by Mel Ignacio CNP) Mother Dementia Maternal Uncle Dementia Social History Household Members: Significant Other Housing: House Are you a primary transition of care specialist to a significant other at home: No Do you presently have visiting nurse or other home services: No 75 years or older and lives alone: No Alcohol intake: current Patient Tobacco Use Status: Former Tobacco user Years Smoked: Quit in e-Cigarette/Vaping Use: Never Used service: No Current occupational status: retired Review of Systems Const Denies chills, Denies daytime sleepiness, Denies difficulty sleeping, Denies fatigue, Denies fever(s), Denies frequent falls, Denies headache(s), Denies increased appetite, Denies poor appetite, Denies snoring, Denies weakness, Denies weight gain and Denies weight loss Eyes Denies loss of vision ENT Denies vertigo, Denies dizziness, Denies headache(s), Reports hearing loss, Denies neck pain and Reports tinnitus Card Denies chest pain at rest, Denies chest pain with activity, Denies syncope, Denies leg edema, Denies palpitations, Denies dyspnea and Denies dyspnea on exertion Resp Denies cough, Denies dyspnea, Denies dyspnea on exertion and Denies snoring GI Denies abdominal pain, Denies constipation, Denies heartburn, Denies diarrhea and Denies nausea Denies urinary frequency, Denies urinary incontinence and Denies urinary urgency Musc Denies abnormal gait, Denies back pain, Denies myalgias, Reports arthralgias, Denies neck pain, Denies numbness and Denies tingling Neuro Denies abnormal gait, Denies vertigo, Denies dizziness, Denies syncope, Denies frequent falls, Denies headache(s), Denies lack of coordination, Denies loss of vision, Reports memory loss, Denies numbness, Denies Other visual disturbances, Denies restless legs, Denies seizure-like activity, Denies tingling, Denies paresthesias, Reports tremor(s) and Denies weakness Psych Denies anxiety, Denies depression, Denies auditory hallucinations, Reports memory loss and Denies visual hallucinations Endo Denies fatigue and Denies palpitations Physical Exam Const Other: General Appearance:? normal, in no acute distress. Heart:? S1, S2 normal, no murmurs. Lungs:? clear anteriorly and posteriorly. Musculoskeletal:? normal. Extremities:? no edema. Psych:? alert, as below. Neuro Other: Abnormal Neurological Findings:?Minimal intermittent side to side head tremor. Slight head turning to the right. Minimal tremor of extended UE. MMSE 29/30. (previous MMSE in 10/2024 was 24/30 - did not know date, serial 7s accurate up to 86, recall 09/13). Mental Status: alert, as below. Cranial Nerves: Pupils are equal, round, and reactive to light. External ocular muscles are intact. Visual smith are full, no ptosis. Face is symmetrical, no facial weakness or droop. Facial sensations are normal. Tongue protrudes in midline. Palate elevates symmetrically. Shoulder shrugging is normal Motor Examination: Normal muscle tone, bulk and strength. No atrophy or fasciculations. No drift of the extended upper extremities. DTR 2+. Plantars are flexor. Sensory Exam: Normal light touch, temperature, pinprick, vibration, and joint-position sensations. Rhomberg sign is absent. Coordination: No ataxia. No titubation. Gait Exam: Within normal limits. Cerebellar Signs: Oogzuk-je-ffbi is okay. Extrapyramidal System: Tremor as above. No rigidity with normal facial expressions. No bradykinesia. No bradyphrenia. Normal arm swing and posture. No propulsion or retropulsion. Speech: Normal. MMSE Level of Consciousness: Alert. Orientation: Knows correct year, month, day, date, and season. Knows correct city, county and state. Knows correct location and floor. Registration: Able to register 3 objects. Attention: Serial 7's performed accurately to 65. Recall: Able to recall 2 out of 3 objects. Language: Normal spontaneous speech, fluency, repetition, naming, comprehension, reading, and writing. Total Score: 29/30. Results Reviewed Results Reviewed: 11/29/22 EEG- WNL 11/2022 CT brain negative Labs normal. Assessment & Plan Assessment & Plan (1) MCI (mild cognitive impairment): Code(s): G31.84 - Mild cognitive impairment of uncertain or unknown etiology Category: Medical Plan: 74-year-old man with tremor and MCI who felt his memory may be declining some, and was concerned about the possibility of Alzheimer's given his family history. At his last appointment in 10/2024, we discussed treatment options, including starting medication, but he was not interested at that time. He was now interested in learning more about medications. He was functioning well overall, staying active with indoor and outdoor projects, and reading about one book/week (and denied any issues following along with plot). He had a novel that he was currently reading with him at this appointment. Of note, MMSE 29/30 today (minus 1 point for recall 2/3) is improved from MMSE 24/30 at previous appointment in 10/2024, where he lost points for date, serial 7s accurate up to 86, and recall 1/3. Treatment options discussed, including donepezil and memantine, use/side effects reviewed. He was also educated on newer type of treatment, IV anti-amyloid treatment (Kisunla) and its potential benefit for early, symptomatic AD, along with possible side effects including possibility of stroke (both ischemic and bleeding-type that could lead to disability, up to and including ). If he was interested in pursuing this type of treatment, additional testing would be needed including further cognitive testing (with MMSE and MoCA), brain MRI, likely PET brain beta amyloid, and labs (TSH, vitamin B12 and folate). TSH, vitamin B12 and folate, and ABeta 42/40 ordered. He wanted to hold off on starting any medication until he was able to discuss with and get input from his PCP first. He had an appointment with his PCP in 09/2025. I recommend he have labs done prior to appointment with PCP. Stay physically, socially, and intellectually active. Follow up in 4 months or sooner as needed. (2) Benign essential tremor: Code(s): G25.0 - Essential tremor Category: Medical Plan: No functional impairment and medication is not indicated at this time. (3) Cervical dystonia: Code(s): G24.3 - Spasmodic torticollis Category: Medical (4) Tinnitus: Code(s): H93.19 - Tinnitus, unspecified ear Category: Medical Qualifiers: Laterality: unspecified laterality Qualified Code(s): H93.19 - Tinnitus, unspecified ear Plan . Orders: Orders TSH reflex Free T4 Today G31.84 - Mild cognitive impairment of uncertain or unknown etiology ABeta 42/40 p-tau 217 Eval Today G31.84 - Mild cognitive impairment of uncertain or unknown etiology Vitamin B12 and Folate Today G3.84 - Mild cognitive impairment of uncertain or unknown etiology Coding Level of Care Code Est Pt Level 4 (47531) Diagnoses MCI (mild cognitive impairment) G31.84 Benign essential tremor G25.0 Cervical dystonia G24.3 Tinnitus, unspecified laterality H93.19 Laterality: unspecified laterality
== END 2025-07-25 08:59 | disposition home or self-care (01) ==
LOC: HO.HSM 08:17
PROVIDERS: PCP Internal Medicine; Visit Provider Registered Nurse
DX: G31.84 Mild cognitive impairment of uncertain or unknown etiology (principal); G25.0 Essential tremor; G24.3 Spasmodic torticollis; H93.19 Tinnitus, unspecified ear
CPT/HCPCS: 99214

== ENCOUNTER 2025-07-29 07:25 | Outpatient (AMB) | payer MEDICARE, SELFPAY ==
--- NOTE | 2025-07-29 07:54 | A.OFFVIS_ITS ---
Vital Signs 07/29/25 08:01 Height 6 ft 2 in Weight 191 lb 2 oz BMI 24.5 BP 142/90 H Blood Pressure Location Lt brachial Position Sitting Pulse 62 Pulse Source Pulse Oximeter Pulse Oximetry (%) 98 Oxygen Delivery Method Room Air Intake Visit Reasons: PMR Intake Note: Patient presents for PMR follow up. Allergies atorvastatin Allergy (Intermediate, Verified 07/29/25 08:00) Muscle Pain house dust Allergy (Intermediate, Verified 07/29/25 08:00) Sneezing Seasonal Allergies Allergy (Intermediate, Verified 07/29/25 08:00) Sneezing HPI Comments Details: Patient is a 74-year-old male with hypothyroidism, hypertension, hyperlipidemia, history of prostate cancer and polymyalgia rheumatica here today for follow up Interval History: Last seen 07/08/[address] Mie - Not on any DMARD meds - off prednisone since 05/2024 - States that he is feeling reasonably well. - He states that he has stiffness when he wakes up. - He does some exercises at home such as sit-ups, leg stretches, quadriceps flexions as well as arms stretches with improvement. - States that he gets some intermittent lower back pain. Denies any joint swelling. Today - Not on any DMARDs - No further episodes of PMR - Complaining of bilateral hand pain and knee pain - especially when ascending and descending chairs Rheumatologic History: PMR onset 09/2020; prednisone started 11/2020- tapered off 05/2022 5mg restarted 01/2024 tapered off 05/2024 Current Rheumatology Medication(s): [facility] Medical History (Updated 07/25/25 @ 08:51 by Mel Ignacio CNP) MCI (mild cognitive impairment) History of colonic polyps Diverticulosis of colon (without mention of hemorrhage) Hypothyroidism Hypertension History of prostate cancer Combined hyperlipidemia Polymyalgia rheumatica syndrome Family History Mother Dementia Maternal Uncle Dementia Social History Household Members: Significant Other Housing: House Are you a primary care consultant to a significant other at home: No Do you presently have visiting nurse or other home services: No 75 years or older and lives alone: No Alcohol intake: current Patient Tobacco Use Status: Former Tobacco user Years Smoked: Quit in e-Cigarette/Vaping Use: Never Used service: No Current occupational status: retired Review of Systems Narrative Review of Systems Constitutional: Denies fever, chills, weight loss ENT: Denies vision changes, eye pain or eye redness, dental caries, dry mouth GI: Denies nausea, vomiting, diarrhea, abdominal pain, change in BM Pulm: Denies SOB, DAVIS, hemoptysis, wheezing Cards: Denies chest pain, palpitations Skin: Denies Raynaud's, rash, nail changes, photosensitivity, MEMORY CARE PROGRAM RESIDENT: Denies headaches, weakness, paresthesias, recurrent falls MSK: as per HPI All other systems reviewed and are unremarkable except noted above Physical Exam Exam Exam: Vital signs reviewed Physical Examination CONSTITUITIONAL Patient alert and cooperative. Well appearing and in no apparent painful distress MSK Hands * Right Hand: Able to make a fist. No swelling or tenderness to palpation of the MCPs, PIPs or DIPs. * Left Hand: Able to make a fist. No swelling or tenderness to palpation of the MCPs, PIPs or DIPs. * Herbedens nodes noted bilaterally Wrists * Right Wrist: Full ROM to flexion and extension. No swelling or TTP * Left Wrist: Full ROM to flexion and extension. No swelling or TTP Elbows * Right Elbow: Full ROM. No swelling or TTP. No TTP of the medial epicondyle. No TTP of the lateral epicondyle * Left Elbow: Full ROM. No swelling or TTP. No TTP of the medial epicondyle. No TTP of the lateral epicondyle Shoulders * Right shoulder: DEcreased ROM. No swelling noted. No TTP of the AC joint. No TTP of the subacromial bursa. No TTP of the posterior shoulder * Left shoulder: Decreased ROM. No swelling noted. No TTP of the AC joint. No TTP of the subacromial bursa. No TTP of the posterior shoulder Knees * Right knee: No swelling noted. No TTP of the knee joint line. No TTP of pes anserine bursa * Left knee: No swelling noted. No TTP of the knee joint line. No TTP of pes anserine bursa. * Crepitations felt bilaterally Ankles * Right ankle: Good ankle dorsiflexion and plantar flexion. No swelling. No TTP of the ankle joint * Left ankle: Good ankle dorsiflexion and plantar flexion. No swelling. No TTP of the ankle joint Feet * Right foot: Negative squeeze test * Left foot: Negative squeeze test Tender points? * No tenderness to palpation of the bilateral trapezius, supraspinatus, anterior costochondral junctions, bilateral suboccipital muscle insertions SKIN No rashes Vital Signs: Last Vital Signs Pulse 62 07/29/25 08:01 BP 142/90 H 07/29/25 08:01 Pulse Ox 98 07/29/25 08:01 Oxygen Delivery Method Room Air 07/29/25 08:01 BMI result Body Mass Index 24.5 Results Reviewed Results Reviewed: Laboratory Tests 01/23/24 11:18 WBC 5.7 RBC 4.72 Hgb 15.5 Hct 42.7 Plt Count 159 L ESR 3 Sodium 140 Potassium 3.9 Chloride 106 Carbon Dioxide 27 BUN 12 Creatinine 0.87 AST 26 ALT 35 C-Reactive Protein < 0.10 Assessment & Plan Assessment & Plan (1) Polymyalgia rheumatica syndrome: Comment: onset 09/2020; prednisone started 11/2020- tapered off 05/2022 5mg restarted 01/2024 tapered off 05/2024 Code(s): M35.3 - Polymyalgia rheumatica Category: Medical Plan: #PMR Patient is a 74-year-old male with a history of PMR here today for follow up Currently in remission off prednisone Plan - No DMARDs indicated - No further prednisone therapy required - Labs today: CBC, CMP, ESR, CRP - RTC 6 months (2) Polyarticular osteoarthritis: Code(s): M15.9 - Polyosteoarthritis, unspecified Plan: #Polyarticular OA Patient with polyarticular osteoarthritis involving knees, hands. Hands are most affected Recommending switching to Tylenol 1000mg bid Topical diclofenac for hands Plan - Tylenol 1000mg bid - Topical diclofenac 1% Plan This is my first visit with the patient. I spent 30 minutes reviewing the record and labs, taking a history, examining the patient, discussing the treatment plan, ordering diagnostic work up and documenting in the medical record Orders: Orders Complete Blood Count Auto Diff Today Z79.899 - Other chcf (current) drug therapy Creatinine Today Z79.899 - Other terminal operations manager (current) drug therapy C Reactive Protein Today Z79.899 - Other chcf (current) drug therapy Erythrocyte Sedimentation Rate Today Z79.899 - Other terminal operations manager (current) drug therapy Alanine Aminotransferase Today Z79.899 - Other chcf (current) drug therapy Aspartate Amino Transferase Today Z79.899 - Other chcf (current) drug therapy Medications: Discontinued prednisone Discontinued Reason: Doctor's Order Take 1 tab daily for 1 month then 1 tab every other day for 1 month then stop 45 tabs 0RF Coding Level of Care Code Est Pt Level 4 (47099) Complex EM visit Add On G2211 Diagnoses Polymyalgia rheumatica syndrome M35.3 Polyarticular osteoarthritis M15.9
[2025-07-29 08:01] VITALS: BP 142/90; PULSE 62; O2SAT 98; BMI 24.5
== END 2025-07-29 08:48 | disposition home or self-care (01) ==
PROVIDERS: PCP Internal Medicine; Visit Provider Student in an Organized Health Care Education/Training Program
DX: M35.3 Polymyalgia rheumatica (principal); M15.9 Polyosteoarthritis, unspecified
CPT/HCPCS: 99214; G2211

== ENCOUNTER 2025-07-29 07:25 | Outpatient (REF) | payer MEDICARE, SELFPAY ==
[2025-07-29 13:46] LABS: MANUAL DIFF FLAG NO
[2025-07-29 14:03] LABS: Alanine Aminotransferase 36 U/L (0-40); Aspartate Amino Transferase 34 U/L (5-37); Estimated Glomerular Filt Rate > 60
[2025-07-29 14:28] LABS: Hematocrit 44.9 % (42.0-52.0); Hemoglobin 15.3 g/dl (14.0-18.0); Imm Gran Abs Auto 0.01 X10*3/uL (0.00-0.03); Imm Gran Pct Auto 0.2 % (0.0-0.4); Lymphocytes Absolute Auto 2.2 X10*3/uL (1.2-4.9); Mean Corpuscular HGB Conc 34.1 g/dl (31.0-36.0); Mean Corpuscular Hemoglobin 31.5 pg (27.0-33.0); Mean Corpuscular Volume 92.4 fL (80.0-98.0); NRBC Abs Auto 0.000 X10*3/uL (0.0-0.012); NRBC Pct Auto 0.0 /100WBC (0.0-0.2); Platelet Count 165 X10*3/uL (160-400); Red Blood Count 4.86 X10*6/uL (4.60-5.80); White Blood Count 6.5 X10*3/uL (4.8-10.8)
== END 2025-07-29 07:26 | disposition home or self-care (01) ==
LOC: HO.HKASLDS 07:25
PROVIDERS: PCP Internal Medicine; Visit Provider Student in an Organized Health Care Education/Training Program
DX: M35.3 Polymyalgia rheumatica (principal); M15.8 Other polyosteoarthritis; Z79.899 Other long term (current) drug therapy
CPT/HCPCS: 36415; 82565; 84450; 84460; 85025; 85652; 86140; 99212